=== PATIENT | female | born 1985 | race Hispanic/Latino ===

== ENCOUNTER 2016-09-16 10:13 | Inpatient (IN) | payer OTHER, MEDICAID ==
[2016-09-16] MEDS ORDERED: PITOCin/NS 20 UNIT/1000ML DRIP 20 UNIT/1,000 ML BAG IV SCH (11:00)
[2016-09-16] MEDS ORDERED: ZOFRAN ONE (11:12)
[2016-09-16] MEDS: LACTATED RINGERS 1,000 ML IV SCH ×4 (11:15→16:30)
[2016-09-16] MEDS: ZOFRAN IV PRN ×2 (11:16→19:40)
[2016-09-16 11:20] LABS: Hematocrit 33.2 % (30.3-42.9); Hemoglobin 10.8 gm/dl (10.1-14.3); Mean Corpuscular HGB Conc 33 % (30-34); Mean Corpuscular Hemoglobin 27 pg (28-32); Mean Corpuscular Volume 83 fl (79-97); Platelet Count 196 K/mm3 (140-440); Red Cell Distribution Width 14.7 % (13.2-15.2); White Blood Count 8.6 K/mm3 (4.5-11.0)
[2016-09-16] MEDS: PITOCin/NS 30 UNIT/500ML 30 UNIT/500 ML BAG IV SCH ×8 (11:58→17:04)
[2016-09-16] MEDS: SUBLIMAZE IV PRN ×2 (14:01→20:30)
[2016-09-16] MEDS ORDERED: ePHEDrine SULFATE ONE (14:59)
--- NOTE | 2016-09-16 15:58 | Anesthesia Consultation ---
Anesthesia Consult and Med Hx Date of service: 09/16/16 - Airway Anesthetic Teeth Evaluation: Good ROM Head & Neck: Adequate Mental/Hyoid Distance: Adequate Intubation Access Assessment: Probably Good - Pre-Operative Health Status ASA Pre-Surgery Classification: ASA2, Emergency Proposed Anesthetic Plan: Epidural, Spinal - Pulmonary Hx Asthma: No - Cardiovascular System Hx Hypertension: No - Central Nervous System Hx Seizures: No Hx Psychiatric Problems: No - Endocrine Hx Renal Disease: No Hx Hypothyroidism: No Hx Hyperthyroidism: No - Hematic Hx Anemia: No Hx Sickle Cell Disease: No - Other Systems Hx Alcohol Use: No
[2016-09-16] MEDS ORDERED: BENADRYL IV PRN (15:59)
[2016-09-16] MEDS ORDERED: ePHEDrine SULFATE IV PRN (15:59)
[2016-09-16] MEDS ORDERED: NARCAN 2 MG/2 ML IV PRN (15:59)
[2016-09-16] MEDS ORDERED: fentaNYL-BUPIV 2 MCG/ML-0.125% 200 MCG/100 ML BAG EPIDURAL SCH (16:00)
[2016-09-16] MEDS ORDERED: XYLOCAINE MPF 2% ONE ×5 (16:20→20:27)
--- NOTE | 2016-09-16 18:04 | History and Physical Report ---
History of Present Illness Date of examination: 09/16/16 Date of admission: 09/16/16 10:13 History of present illness: 30 yo EDC 09/18/16 @ 39.5 weeks gestation called with c/o SROM this am @ 0800, clear fluid. First trimester entry and transfer into care at 10 weeks gestation. Hx of Migraine headaches with Fioricet prn, but overall ineffective. Limited anatomy scan with repeat U/S WNL. Abnl elevated 1hr GCT with NL 3hr GTT. Past History Past Medical History: migraines Past Surgical History: no surgical history Family/Genetic History: diabetes, hypertension Social history: no significant social history - Obstetrical History Expected Date of Delivery: 09/18/16 Actual Gestation: 39 Week(s) 5 Day(s) : 1 Medications and Allergies Allergies Allergy/AdvReac Type Severity Reaction Status Date / Time No Known Allergies Allergy Unverified 05/15/16 20:07 Home Medications Medication Instructions Recorded Confirmed Last Taken Type No Known Home Medications [No 09/16/16 09/16/16 Unknown History Reported Home Medications] Active Meds: Active Medications Diphenhydramine HCl (Benadryl) 12.5 mg IV Q2H PRN PRN Reason: Itching Fentanyl (Sublimaze) 100 mcg IV ONCE PRN PRN Reason: Pain , Severe (7-10) Last Admin: 09/16/16 14:01 Dose: 100 mcg Lactated Ringer's (Lactated Ringers) 1,000 mls @ 125 mls/hr IV DIRECT HERMINIA Last Admin: 09/16/16 16:30 Dose: 125 mls/hr Oxytocin/Sodium Chloride (Pitocin/Ns 20 Unit/1000ml Drip) 20 unit in 1,000 mls @ 125 mls/hr IV DIRECT HERMINIA Oxytocin/Sodium Chloride (Pitocin/Ns 30 Unit/500ml) 30 unit in 500 mls @ 4 mls/ hr IV TITR HERMINIA; 4 MILLIUNITS/MIN PRN Reason: Protocol Last Admin: 09/16/16 17:04 Dose: 8 milliunits/min, 8 mls/hr Fentanyl/Bupivacaine/Sodium Chlor (Fentanyl-Bupiv 2 Mcg/Ml-0.125%) 200 mcg in 100 mls @ 12 mls/hr EPIDURAL TITR HERMINIA PRN Reason: Protocol Ondansetron HCl (Zofran) 4 mg IV Q8H PRN PRN Reason: Nausea And Vomiting Last Admin: 09/16/16 11:16 Dose: 4 mg Review of Systems All systems: negative Breasts: deferred Genitourinary: normal appearance, vaginal bleeding (normal show), leakage of fluid, contractions - Vital Signs Vital signs: Vital Signs Pulse BP Pulse Ox 78 115/67 99 09/16/16 10:37 09/16/16 10:37 09/16/16 10:37 Temp Pulse Resp BP Pulse Ox 98.9 F 92 H 18 128/56 99 09/16/16 16:35 09/16/16 17:54 09/16/16 14:01 09/16/16 17:31 09/16/16 17:54 - Physical Exam Genitourinary (Female): Positive: normal external genitalia Vagina: Positive: normal moisture Uterus: Positive: normal size - Obstetrical FHR: category 1 Uterine Contraction Monitor Mode: External Cervical Dilatation: 8 Cervical Effacement Percentage: 90 station: -1 Uterine Contraction Pattern: Regular Uterine Tone Measurement Phase: Resting Uterine Contraction Intensity: Strong/Firm Results Result Diagrams: 09/16/16 11:07 Abnormal lab results 09/16/16 Range/Units 11:07 MCH 27 L (28-32) pg All other labs normal. Assessment and Plan A: IUP at term PROM at term Transitional Labor Negative GBS Epidural Insitu Pain P: Anesthesia consult Continue Pitocin augmentation Anticipate
[2016-09-16] MEDS ORDERED: MINERAL OIL ONE (21:02)
--- NOTE | 2016-09-16 21:28 | Procedure Note ---
OB Delivery Note - Delivery Date of Delivery: 09/16/16 (8-4oz male @ 2108) Surgeon: AUGUSTINA PATRICK Estimated blood loss: 200cc - Vaginal Delivery presentation: vertex Delivery position: OA Intrapartum events: none Delivery augmentation: pitocin Delivery monitor: external FHT, external uterine Route of delivery: Delivery placenta: spontaneous Delivery cord: 3 umbilical vessels Episiotomy: none Delivery laceration: other (bilateral labial, not bleeding, not repaired) Anesthesia: epidural - Infant A at 1 minute: 8 at 5 minutes: 9 Gender: Male ( viable male, infant skin to skin. Spont. placenta, bleeding small, Pitocin infusing. FF 2 below, U, ML. Lacerations not bleeding, not repaired)
[2016-09-16] MEDS ORDERED: TUCKS PAD TP PRN (21:29)
[2016-09-16] MEDS ORDERED: NORCO 5/325 PO PRN (21:29)
[2016-09-16] MEDS ORDERED: TYLENOL PO PRN (21:29)
[2016-09-16] MEDS ORDERED: MILK OF MAGNESIA PO PRN (21:29)
[2016-09-16] MEDS ORDERED: PHENERGAN PR PRN (21:29)
[2016-09-16] MEDS ORDERED: DULCOLAX PR PRN (21:29)
[2016-09-16] MEDS ORDERED: PHENERGAN PO PRN (21:29)
[2016-09-16] MEDS ORDERED: LANSINOH TP PRN (21:29)
[2016-09-16] MEDS ORDERED: ZOFRAN IV PRN (21:29)
[2016-09-16] MEDS ORDERED: BENADRYL PO PRN (21:29)
[2016-09-16] MEDS ORDERED: DERMOPLAST TP PRN (21:29)
[2016-09-16] MEDS ORDERED: SODIUM CHLORIDE FLUSH SYRINGE 10 ML IV NR (22:00)
[2016-09-16] MEDS: MOTRIN PO SCH (22:12)
[2016-09-16] MEDS ORDERED: MINERAL OIL PO ONE (23:54)
[2016-09-17] MEDS ORDERED: BOOSTRIX IM ONE (06:00)
[2016-09-17] MEDS ORDERED: M-M-R II VACCINE SUB-Q ONE (06:05)
[2016-09-17] MEDS: MOTRIN PO SCH ×2 (06:25→11:56)
--- NOTE | 2016-09-17 08:53 | Discharge Summary ---
Providers - Providers Date of Admission: 09/16/16 10:13 Date of discharge: 09/18/16 Attending physician: JULIO C RICHARDS MD Primary care physician: JULIO C RICHARDS MD Hospitalization Delivery: Procedure details: Please see delivery note. Episiotomy: none Laceration: other (Bilateral labial) Incision: intact Other procedures: none complications: none Discharge diagnosis: IUP at term delivered [place] baby: male Hospital course: Patient was admitted in active labor and underwent a spontaneous vaginal delivery which she tolerated well. Her course was uncomplicated and she met discharge criteria on day #2. Condition at discharge: Stable Disposition: DISCHARGED TO HOME OR SELFCARE - Discharge Diagnoses (1) Term of male Status: Acute (2) Anemia affecting Status: Acute Plan - Discharge Medications Prescriptions: Ferrous Sulfate [Feosol 325 MG tab] 325 mg PO BID #60 tablet HYDROcodone/APAP 5-325 [[place] 5/325] 1 each PO Q6HR PRN #30 tablet PRN Reason: Pain Ibuprofen [Motrin] 600 mg PO Q6H PRN #30 tablet PRN Reason: Pain Vit-Fe Fumar-FA [ Vitamin] 1 tab PO QDAY #30 tablet - Provider Discharge Summary Activity: routine, no sex for 6 weeks, no heavy lifting 4 weeks, no strenuous exercise Diet: routine Instructions: routine Additional instructions: [] Smoking cessation referral if applicable(refer to patient education folder for contact #) [] Refer to [facility]'s [facility] Booklet Call your doctor immediately for: * Fever > 100.5 * Heavy vaginal bleeding ( >1 pad per hour) * Severe persistent headache * Shortness of breath * Reddened, hot, painful area to leg or breast * Drainage or odor from incision. * Keep incision clean and dry at all times and follow doctor's instructions regarding bathing/showering Please schedule your son's circumcision before he is 1 month old. - Follow up plan Follow up: AUGUSTINA PATRICK CNM [Advanced Practice Nurse] - 10/16/16 (postpartume exam )
--- NOTE | 2016-09-17 08:53 | Progress Note ---
Assessment and Plan A: PPD#1 s/p at term, Asymptomatic anemia P: Routine care. Discharge tomorrow AM. Subjective - Subjective Date of service: 09/17/16 Principal diagnosis: s/p at term Interval history: Baby having difficulty latching on. Otherwise no overnight events. Patient reports: appetite normal, voiding normally, pain well controlled, ambulating normally, no nauseated : doing well Objective - Vital Signs Latest vital signs: Vital Signs Temp Pulse Pulse Resp BP BP Pulse Ox 09/17/16 05:00 98.2 F 72 20 121/70 09/16/16 23:50 98.7 F 73 20 113/57 09/16/16 22:20 93 H 122/58 09/16/16 22:12 18 09/16/16 22:03 95 H 109/69 09/16/16 21:48 96 H 128/73 09/16/16 21:33 99 H 127/59 09/16/16 21:22 109 H 96 09/16/16 21:18 96 H 120/56 09/16/16 21:17 93 H 97 09/16/16 21:12 105 H 96 09/16/16 21:07 128 H 97 09/16/16 21:02 112 H 97 09/16/16 20:57 122 H 99 09/16/16 20:52 109 H 96 09/16/16 20:49 99 H 121/67 09/16/16 20:47 91 H 97 09/16/16 20:45 89 94 09/16/16 20:42 84 97 09/16/16 20:40 98.1 F 20 09/16/16 20:37 104 H 98 09/16/16 20:34 95 H 135/69 09/16/16 20:32 111 H 97 09/16/16 20:30 20 09/16/16 20:27 97 H 96 09/16/16 20:22 100 H 98 09/16/16 20:19 101 H 130/81 09/16/16 20:17 109 H 97 09/16/16 20:14 116 H 93 09/16/16 20:12 102 H 98 09/16/16 20:07 104 H 96 09/16/16 20:04 96 H 122/70 09/16/16 20:02 113 H 95 09/16/16 19:57 116 H 96 09/16/16 19:52 110 H 96 09/16/16 19:47 100 H 96 09/16/16 19:42 114 H 97 09/16/16 19:37 100 H 96 09/16/16 19:32 112 H 98 09/16/16 19:27 118 H 98 09/16/16 19:25 109 H 148/69 09/16/16 19:22 125 H 98 09/16/16 19:17 96 H 127/64 09/16/16 19:14 104 H 100 09/16/16 19:10 88 135/72 09/16/16 19:09 91 H 99 09/16/16 19:05 93 H 136/65 09/16/16 19:04 99 H 99 09/16/16 19:01 96 H 132/92 09/16/16 18:59 92 H 99 09/16/16 18:54 78 115/61 100 09/16/16 18:50 71 122/64 09/16/16 18:49 75 99 09/16/16 18:45 76 123/60 09/16/16 18:44 75 99 09/16/16 18:40 74 121/66 09/16/16 18:39 68 120/67 99 09/16/16 18:36 65 119/67 09/16/16 18:34 69 98 09/16/16 18:33 69 100/58 09/16/16 18:32 72 93/51 09/16/16 18:29 67 98 09/16/16 18:24 69 98 09/16/16 18:19 105 H 96 09/16/16 18:14 88 99 09/16/16 18:09 82 99 09/16/16 18:04 77 99 09/16/16 17:59 86 99 09/16/16 17:54 92 H 99 09/16/16 17:49 86 99 09/16/16 17:44 92 H 99 09/16/16 17:39 83 99 09/16/16 17:34 92 H 99 09/16/16 17:31 73 128/56 09/16/16 17:29 69 100 09/16/16 17:24 66 99 09/16/16 17:19 68 99 09/16/16 17:14 65 99 09/16/16 17:09 67 99 02/12/17 17:04 80 99 09/16/16 16:59 78 99 09/16/16 16:54 67 99 09/16/16 16:49 80 99 09/16/16 16:44 82 98 09/16/16 16:42 76 104/59 09/16/16 16:39 70 98 09/16/16 16:35 98.9 F 81 110/65 99 09/16/16 16:34 80 98 09/16/16 16:30 81 110/65 09/16/16 16:29 71 99 09/16/16 16:28 80 119/61 09/16/16 16:26 80 119/76 09/16/16 16:24 64 115/62 100 09/16/16 16:22 71 110/58 09/16/16 16:20 61 123/67 09/16/16 16:19 72 99 09/16/16 16:18 63 115/62 09/16/16 16:16 67 112/60 09/16/16 16:14 68 121/61 100 09/16/16 16:12 71 119/65 09/16/16 16:10 69 115/62 09/16/16 16:09 63 97 09/16/16 16:08 61 90/66 09/16/16 16:06 74 116/51 09/16/16 16:04 65 111/54 97 09/16/16 16:02 76 108/59 09/16/16 15:59 71 97 09/16/16 15:58 68 114/63 09/16/16 15:57 69 108/65 09/16/16 15:54 62 96 09/16/16 15:52 67 122/58 09/16/16 15:49 84 96 09/16/16 15:48 84 130/80 09/16/16 15:45 85 127/77 09/16/16 15:44 81 119/65 96 09/16/16 15:42 88 117/72 09/16/16 15:41 87 94 09/16/16 15:40 88 116/68 09/16/16 15:39 81 98 09/16/16 15:38 71 117/62 09/16/16 15:36 86 127/65 09/16/16 15:34 88 121/80 09/16/16 15:33 82 96 09/16/16 15:32 89 121/77 09/16/16 15:29 86 115/73 09/16/16 15:28 85 99 09/16/16 14:01 18 09/16/16 13:31 98.3 F 09/16/16 11:08 67 97 09/16/16 11:03 90 95 09/16/16 10:47 99.9 F H 85 18 115/67 98 09/16/16 10:37 78 115/67 99 Intake and Output 09/16/16 09/17/16 09/17/16 22:59 06:59 14:59 Intake Total 2000 720 Output Total 750 1500 Balance 1250 -780 Intake: IV 2000 Lactated Ringers 1,000 ml 2000 @ 125 mls/hr IV DIRECT HERMINIA Rx#:[id number] Oral 240 Intake, Free Water 480 Output: Urine 750 1500 Indwelling Catheter 100 Void 650 1500 Other: Total, Intake Amount 240 Total, Output Amount 750 350 # Voids Indwelling Catheter 400 Void 2 Estimated Blood Loss 200 - Exam Breasts: Present: deferred Cardiovascular: Present: Regular rate Lungs: Present: Clear to auscultation Abdomen: Present: soft Extremities: Present: normal - Labs Labs: Abnormal lab results 09/16/16 Range/Units 11:07 MCH 27 L (28-32) pg
[2016-09-17] MEDS ORDERED: PRENATAL VITAMIN PO SCH (10:00)
[2016-09-17 10:19] LABS: Hematocrit 28.7 % (30.3-42.9); Hemoglobin 9.3 gm/dl (10.1-14.3)
[2016-09-17] MEDS: COLACE PO SCH ×2 (11:55→22:50)
--- NOTE | 2016-09-17 13:42 | Progress Note ---
Subjective Date of service: 09/17/16 Principal diagnosis: s/p at term Interval history: 1st day after normal vaginal delivery Patient is in the bed, comfortable. Pain is well controlled with pain meds. Ambulated normally. No residual neurological deficit. No anesthesia complications Objective - Constitutional Vitals: Vital Signs - 12hr 09/17/16 09/17/16 05:00 07:50 Temperature 98.2 F 98.3 F Pulse Rate [ 72 73 From Monitor] Respiratory 20 20 Rate Blood Pressure 121/70 101/61 [Left Arm] - Labs CBC & Chem 7: 09/17/16 09:54 Labs: Abnormal lab results 09/17/16 Range/Units 09:54 Hgb 9.3 L (10.1-14.3) gm/dl Hct 28.7 L (30.3-42.9) %
[2016-09-18] MEDS: MOTRIN PO SCH ×2 (05:49)
[2016-09-18 13:23] VITALS: BP 102/50
== END 2016-09-18 13:00 | disposition home or self-care (01) | DRG 775 ==
LOC: LD 10:13 → OB 22:48
PROVIDERS: ADMIT Obstetrics & Gynecology; ATTEND Obstetrics & Gynecology
PROC: 10E0XZZ Delivery of Products of Conception, External Approach (ICD-10-PCS; principal; 2016-09-16)
PROC: 3E0S3CZ (ICD-10-PCS; 2016-09-16)
PROC: 00HU33Z Insertion of Infusion Device into Spinal Canal, Percutaneous Approach (ICD-10-PCS; 2016-09-16)
DX: O42.92 Full-term premature rupture of membranes, unspecified as to length of time between rupture and onset of labor (principal); O99.354 Diseases of the nervous system complicating childbirth; G43.909 Migraine, unspecified, not intractable, without status migrainosus; O90.81 Anemia of the puerperium; O70.0 First degree perineal laceration during delivery; Z37.0 Single live birth; Z3A.39 39 weeks gestation of pregnancy; Z83.3 Family history of diabetes mellitus; Z82.49 Family history of ischemic heart disease and other diseases of the circulatory system
CPT/HCPCS: 36415; 85014; 85018; 85027; 86850; 86900; 86901; 90471; 90715; A6250; J2405; J2590; J3010; J7120